=== PATIENT | female | born 1990 | race Caucasian/White ===

== ENCOUNTER → 2018-12-26 | Outpatient (CLI) | payer BC ==
--- NOTE | 2018-12-26 09:50 | PCVCIMAG ---
APPROVED REPORT Study performed: 12/26/2018 08:36:47 EXAM: Comprehensive 2D, Doppler, and color-flow Echocardiogram Patient Location: Echo lab Status: routine BSA: 1.75 HR: 74 bpmBP: 144/80 mmHg Rhythm: NSR Other Information Study Quality: Adequate Indications #21 bioprosthetic aortic valve replacement 2D Dimensions IVSd: 8.43 (7-11mm)LVOT Diam: 21.10 (18-24mm) LVDd: 39.60 mm PWd: 9.78 (7-11mm) LVDs: 31.84 (25-40mm) Left Atrium: 32.35 (27-40mm) Aortic Root: 32.40 mm LV Single Plane 4CH: 63.24 % LV Single Plane 2CH: 68.79 % Biplane EF: 66.2 % Volumes Left Atrial Volume (Systole) Single Plane 4CH: 64.34 mLSingle Plane 2CH: 75.40 mL LA ESV Index: 41.00 mL/m2 Aortic Valve AoV Peak Clyde.: 3.18 m/s AO Peak Gr.: 40.54 mmHgLVOT Max P.18 mmHg AO Mean Gr.: 20.86 mmHgLVOT Mean P.40 mmHg AO V2 Mean: 2.10 m/sLVOT Max V: 1.18 m/s AO V2 VTI: 72.31 cmLVOT Mean V: 0.88 m/s AVI (VTI): 1.27 [id number] V1 VTI: 26.26 cm AVI Vmax: 1.29 cm2 SV (LVOT): 91.77 mL Mitral Valve E/A Ratio: 2.6 MV Decel. Time: 176.27 ms MV E Max Clyde.: 1.24 m/s MV A Clyde.: 0.48 m/s IVRT: 65.74 ms Pulmonary Valve PV Peak Clyde.: 1.21 m/sPV Peak Gr.: 5.83 mmHg Pulmonary Vein P Vein S: 0.31 m/sP Vein A: 0.52 m/s P Vein D: 0.67 m/sP Vein A Dur.: 128.0 msec P Vein S/D Ratio: 0.46 Tricuspid Valve TR Peak Clyde.: 2.55 m/s TR Peak Gr.: 25.99 mmHg Left Ventricle The left ventricle is normal size. There is normal LV segmental wall motion. There is normal left ventricular wall thickness. Left ventricular systolic function is normal. The left ventricular ejection fraction is within the normal range. LVEF is 65%. The left ventricular diastolic function is normal. Right Ventricle The right ventricle is normal size. The right ventricular systolic function is normal. Atria Left atrium is mildly dilated. The right atrium size is normal. Aortic Valve Normally functioning #21 trifecta bioprosthetic aortic valve. No aortic regurgitation is present. There is trace valvular aortic stenosis. Calculated aortic valve area is 1.3 cm2 with maximum pressure gradient of 42 mmHg and mean pressure gradient of 23 mmHg. Mitral Valve The mitral valve is normal in structure. Mild mitral regurgitation. No evidence of mitral valve stenosis. Tricuspid Valve The tricuspid valve is normal in structure. Mild tricuspid regurgitation with PAP of 35 mmHg. Pulmonic Valve The pulmonary valve is normal in structure. Trace pulmonic regurgitation. Great Vessels The aortic root is normal in size. IVC is normal in size and collapses >50% with inspiration. Pericardium There is no pericardial effusion. There is no pleural effusion. <Conclusion> Left ventricular systolic function is normal. There is normal LV segmental wall motion. LVEF is 65%. Normally functioning #21 Trifecta bioprosthetic aortic valve. Calculated aortic valve area is 1.3 cm2 (Peak gradient of 42 mmHg, mean pressure gradient of 23 mmHg). No aortic regurgitation is present. The mitral valve is normal in structure. Mild mitral regurgitation. Mild tricuspid regurgitation with pulmonary artery pressure of 35 mmHg. There is no pericardial effusion.
== END | disposition home or self-care (01) ==
LOC: PCVCIMAG 09:04
PROVIDERS: ATTEND Internal Medicine
DX: I08.1 Rheumatic disorders of both mitral and tricuspid valves (principal); E78.5 Hyperlipidemia, unspecified; Z95.3 Presence of xenogenic heart valve
CPT/HCPCS: 93306